=== PATIENT | female | born 1985 | race Caucasian/White ===

== ENCOUNTER → 2016-09-20 | Outpatient (CLI) | payer SELFPAY | LOC: LAB 11:23 | DX: E03.8 Other specified hypothyroidism (principal) ==

== ENCOUNTER → 2017-11-10 | Outpatient (CLI) | payer SELFPAY | LOC: LAB 08:54 | PROVIDERS: Physician Assistant | DX: E03.4 Atrophy of thyroid (acquired) (principal) ==

== ENCOUNTER → 2019-04-11 | Outpatient (CLI) | payer SELFPAY | LOC: LAB 15:27 | DX: Z01.419 Encounter for gynecological examination (general) (routine) without abnormal findings (principal); E03.4 Atrophy of thyroid (acquired) ==